=== PATIENT | female | born 1995 | race Caucasian/White ===

== ENCOUNTER → 2019-02-15 | Outpatient (CLI) | payer OTHER ==
[2019-02-15 11:00] LABS: Hematocrit 36.6 % (33.0-51.0); Hemoglobin 11.3 g/dL (11.5-16.0); Mean Corpuscular HGB 23.8 pg (26.0-34.0); Mean Corpuscular HGB Conc 30.9 g/dL (31.5-36.5); Mean Corpuscular Volume 77 fL (80-100); Mean Platelet Volume 10.5 fL (9.1-12.4); Platelet Count 325 K/mm3 (150-400); RDW Coefficient Variation 13.3 % (11.7-14.2); RDW Standard Deviation 37.2 fL (35.1-46.3); Red Blood Cell Count 4.75 M/mm3 (3.80-5.20); White Blood Cell Count 6.43 K/mm3 (4.00-11.30)
[2019-02-15 11:12] LABS: Alanine Aminotransfer (ALT/SGP 20 U/L (12-78); Albumin, Blood 3.6 g/dL (3.4-5.0); Albumin/Globulin Ratio 0.9 (0.8-1.8); Alk Phos 71 U/L (50-136); Amylase, Blood 86 U/L (25-115); Anion Gap 6 mmol/L (6-16); Aspartate Aminotrans (AST/SGOT 13 U/L (12-37); Bilirubin, Total 0.3 mg/dL (0.1-1.0); Blood Urea Nitrogen 8 mg/dL (8-24); Bun/Creatinine Ratio 9.9 (12.0-20.0); CO2, Blood 28 mmol/L (21-32); Calcium, Blood 8.9 mg/dL (8.5-10.1); Chloride, Blood 106 mmol/L (98-108); Creatinine, Blood 0.81 mg/dL (0.40-1.00); Globulin, Blood 4.1 g/dL (2.2-4.0); Glomerular Filtration Rate >60 (60-); Glucose, Blood 84 mg/dL (70-99); Potassium, Blood 4.1 mmol/L (3.5-5.5); Sodium, Blood 140 mmol/L (136-145); Total Protein, Blood 7.7 g/dL (6.4-8.2)
== END ==
LOC: LAB 10:50 → LAB SHORT 10:50
PROVIDERS: Nurse Practitioner Psychiatric/Mental Health
DX: K59.00 Constipation, unspecified (principal); R10.84 Generalized abdominal pain; R11.0 Nausea
CPT/HCPCS: 80053; 82150; 83690; 85027

== ENCOUNTER 2020-08-13 21:41 | Inpatient (IN) | payer OTHER ==
[~2020-08-13] VITALS: Ht 170.2 cm; Wt 79.4 kg
[~2020-08-13 21:41] MED LIST: ALBU90OI INH; FLUT1DIS2 INH; LO LOESTRIN FE1 EACH PO
[2020-08-13 22:44] LABS: BASOPHILS ABSOLUTE AUTO 0.06 K/mm3 (0.00-0.23); BASOPHILS PERCENT AUTO 0 % (0-2); EOSINOPHILS ABSOLUTE AUTO 0.04 K/mm3 (0.00-0.68); EOSINOPHILS PERCENT AUTO 0 % (0-6); Hematocrit 38.2 % (33.0-51.0); Hemoglobin 13.1 g/dL (11.5-16.0); IMMATURE GRAN ABSOLUTE AUTO 0.06 K/mm3 (0.00-0.10); IMMATURE GRAN PERCENT AUTO 0 % (0-1); LYMPHOCYTES ABSOLUTE AUTO 1.35 K/mm3 (0.84-5.20); LYMPHOCYTES PERCENT AUTO 10 % (21-46); MONOCYTES PERCENT AUTO 7 % (4-13); Mean Corpuscular HGB 29.3 pg (26.0-34.0); Mean Corpuscular HGB Conc 34.3 g/dL (31.5-36.5); Mean Corpuscular Volume 86 fL (80-100); Mean Platelet Volume 9.6 fL (9.1-12.4); NEUTROPHILS ABSOLUTE AUTO 11.05 K/mm3 (1.96-9.15); NEUTROPHILS PERCENT AUTO 82 % (41-73); Platelet Count 342 K/mm3 (150-400); RDW Coefficient Variation 11.6 % (11.7-14.2); RDW Standard Deviation 36.4 fL (35.1-46.3); Red Blood Cell Count 4.47 M/mm3 (3.80-5.20); White Blood Cell Count 13.56 K/mm3 (4.00-11.30)
[2020-08-13 23:13] LABS: Alanine Aminotransfer (ALT/SGP 13 U/L (12-78); Albumin, Blood 3.2 g/dL (3.4-5.0); Albumin/Globulin Ratio 0.7 (0.8-1.8); Alk Phos 72 U/L (50-136); Anion Gap 6 mmol/L (6-16); Aspartate Aminotrans (AST/SGOT 10 U/L (12-37); Bilirubin, Total 0.3 mg/dL (0.1-1.0); Blood Urea Nitrogen 12 mg/dL (8-24); Bun/Creatinine Ratio 14.4 (12.0-20.0); CO2, Blood 25 mmol/L (21-32); Calcium, Blood 8.5 mg/dL (8.5-10.1); Chloride, Blood 100 mmol/L (98-108); Creatinine, Blood 0.83 mg/dL (0.40-1.00); Globulin, Blood 4.9 g/dL (2.2-4.0); Glomerular Filtration Rate >60 (60-); Glucose, Blood 105 mg/dL (70-99); Potassium, Blood 3.7 mmol/L (3.5-5.5); Sodium, Blood 131 mmol/L (136-145); Total Protein, Blood 8.1 g/dL (6.4-8.2)
[2020-08-13 23:59] LABS: Source, Urine Clean Catch
[2020-08-14 00:01] LABS: Appearance, Urine Clear (Clear); Bilirubin, Urine Neg (Neg); Blood, Urine 3+ (Neg); Color, Urine Yellow (P-Yellow); Glucose Qualitative, Urine Neg (Neg); Ketones, Urine Neg (Neg); Leukocyte Esterase, Urine 1+ (Neg); Nitrite, Urine Neg (Neg); Protein, Urine Neg (Neg); Specific Gravity, Urine 1.005 (1.003-1.022); Urobilinogen, Urine NORM (Normal); pH, Urine 6.5 (5.0-8.0)
[2020-08-14 00:18] LABS: Bacteria Few /hpf; Red Blood Cells, Urine 0-2 /hpf (0-2); Squamous Epithelial Cells Mod /hpf (Few)
--- NOTE | 2020-08-14 10:43 | NUR ---
PT TO OR VIA CLAUS
[2020-08-14 10:45] LABS: SARS-Cov-2 (COVID-19) PCR, MMC NEGATIVE (NEGATIVE)
--- NOTE | 2020-08-14 11:05 | NUR ---
History, Chart, Medications and Allergies reviewed before start of procedure. Lungs clear T/O to Auscultation. Patient confirms NPO status and agrees with scheduled surgery. Pre-Op teaching done. Pt verbalizes understanding.
--- NOTE | 2020-08-14 11:50 | NUR ---
ASSUMED CARE FROM GIOVANI, PT RESTING SPO2 @ 94%.
--- NOTE | 2020-08-14 12:06 | NUR ---
PT CONT TO REST. SPO2 95% ON RA.
--- NOTE | 2020-08-14 12:30 | NUR ---
PT CONT TO REST. CARE BACK TO GRETCHEN ALLAN.
--- NOTE | 2020-08-14 15:01 | NUR ---
RETURN FROM OR PT RETURNED FROM OR FROM I&D OF PERIRECTAL ABCESS. PT IS PAINFUL ON PERIRECTUM AREA, MILD NAUSEA. MEDICATED IN PACU, WILL CONTINUE TO MEDICATE PER EMAR. PINROSE DRAIN, GUAZE, & ABD PAD IN PLACE, C/D/I AT THIS TIME.
--- NOTE | 2020-08-14 18:17 | NUR ---
SHIFT SELVIN S/P I&D PERIRECTAL ABCESS, POD 0. GUAZE & ABD PAD IN PLACE WITH RADHA WRAP. A & O, VSS, NAUSEA & PAIN TOLERABLE SINCE RETURN FROM OR, MEDICATED X1 PER EMAR. TOLERATING REGULAR DIET WELL, VOIDING AND WALKING WITHIN ROOM. CALL LIGHT WITHIN REACH, WILL CONTINNUE TO MONITOR.
--- NOTE | 2020-08-15 04:15 | NUR ---
SHIFT SUMMARY PT IS A/O X4, IND IN ROOM. S/P I&D OF PERIRECTAL ABCESS. ABD PAD IN PLACE, CHANGING PRN. PAIN MANAGED WITH PERCOCET 7.5MG PRN. PT IS TOLERATING PO INTAKE AND VOIDING. NO ACUTE CHANGES. RESTING IN BED AT THIS TIME.
[2020-08-15] MEDS ORDERED: OXYC10TA19 PO (10:22)
[2020-08-15] MEDS ORDERED: CIPR250 PO (10:23)
--- NOTE | 2020-08-15 11:13 | NUR ---
DISCHARGE ABUNDANCE OF ABD PADS GIVEN. SMALL SEROSANG DRAINAGE FROM BUTTOCKS ONTO PAD. PT UNDERSTANDS IMPORTANCE OF TAKING ALL OF ANTIBTIOICS & F/U W/ DR CEVALLOS. SHE ALSO PLANS TO CALL ROBERT DAVIS TO UPDATE HIM. ESCORTED OUT VIA W/C.
== END 2020-08-15 11:01 | disposition home or self-care (01) | DRG 348 ==
LOC: ER 21:41 → SURS 08-14 01:50 → ER 08-14 06:34 → SURS 08-14 06:34
PROVIDERS: Physician Assistant; Surgery; ADMIT Surgery
PROC: 0D9Q0ZZ Drainage of Anus, Open Approach (ICD-10-PCS; principal; 2020-08-14 11:15)
DX: K61.0 Anal abscess (principal); K50.90 Crohn's disease, unspecified, without complications; J45.909 Unspecified asthma, uncomplicated; Z20.822 Contact with and (suspected) exposure to COVID-19; Z79.899 Other long term (current) drug therapy
CPT/HCPCS: 36415; 36600; 70450; 71045; 71046; 74177; 80053; 81001; 81025; 82140; 83605; 83690; 84703; 85025; 87040; 87086; 93005; 93010; 96374; 96375; 99284-25; 99285-25; A9270; G0480; J1100; J1170; J1885; J2250; J2405; J2543; J2704; J3010; J7030; J7120; Q9967; U0004

== ENCOUNTER → 2023-12-07 | Outpatient (CLI) | payer OTHER ==
[~2023-12-07] MED LIST changes: +CIPR250 PO; +DOXYLAMINE-PYR1 EAC1 PO; +FISH OIL 1,2001 EAC4 PO; +HUMIRA40 MG/0.2 SQ; +NITRO-BID; +ONDA4ODT MM; +OXYC10TA19 PO; +REGLAN1013 PO; +STELARA90 MG/1 ML SQ
== END | disposition home or self-care (01) ==
LOC: LAB SHORT 17:23 → LAB 17:23
DX: O99.612 Diseases of the digestive system complicating pregnancy, second trimester (principal); O09.612 Supervision of young primigravida, second trimester
CPT/HCPCS: 87081; 87150

== ENCOUNTER 2024-01-15 07:06 | Inpatient (IN) | payer OTHER ==
[2024-01-15] VITALS (16 sets, daily range): BP systolic 104–132; BP diastolic 62–88
[~2024-01-15] VITALS: Ht 170.2 cm; Wt 103.8 kg
[2024-01-15] MEDS ORDERED: ePHEDrine Sulfate 50 MG/ML 1ML Injection XX PRN (07:40)
[2024-01-15] MEDS ORDERED: Misoprostol 25 MCG Tab VAG PRN (07:40)
[2024-01-15] MEDS ORDERED: Lactated Ringer's 1,000 ML IV SCH ×3 (07:40)
[2024-01-15] MEDS ORDERED: FentaNYL 2mcg/ml-Bup 0.1% Epd 250 ML EPI PRN (07:40)
[2024-01-15] MEDS ORDERED: OXYTOCIN/RINGER'S LACTATE 500 ML IV SCH (07:40)
[2024-01-15] MEDS ORDERED: FentaNYL Citrate 50 MCG/ML 2 ML Injection IV PRN ×4 (07:50→17:05)
[2024-01-15] MEDS ORDERED: Ondansetron HCl 2 MG / ML 2ML Vial IV PRN (07:50)
[2024-01-15 07:52] LABS: BASOPHILS ABSOLUTE AUTO 0.04 K/mm3 (0.00-0.23); BASOPHILS PERCENT AUTO 1 % (0-2); EOSINOPHILS ABSOLUTE AUTO 0.03 K/mm3 (0.00-0.68); EOSINOPHILS PERCENT AUTO 0 % (0-6); Hematocrit 32.8 % (33.0-51.0); Hemoglobin 10.9 g/dL (11.5-16.0); IMMATURE GRAN ABSOLUTE AUTO 0.06 K/mm3 (0.00-0.10); IMMATURE GRAN PERCENT AUTO 1 % (0-1); LYMPHOCYTES ABSOLUTE AUTO 1.07 K/mm3 (0.84-5.20); LYMPHOCYTES PERCENT AUTO 13 % (21-46); MONOCYTES ABSOLUTE AUTO 0.55 K/mm3 (0.16-1.47); MONOCYTES PERCENT AUTO 7 % (4-13); Mean Corpuscular HGB 26.4 pg (26.0-34.0); Mean Corpuscular HGB Conc 33.2 g/dL (31.5-36.5); Mean Corpuscular Volume 79 fL (80-100); Mean Platelet Volume 10.9 fL (9.1-12.4); NEUTROPHILS ABSOLUTE AUTO 6.54 K/mm3 (1.96-9.15); NEUTROPHILS PERCENT AUTO 79 % (41-73); Platelet Count 197 K/mm3 (150-400); RDW Coefficient Variation 14.1 % (11.7-14.2); RDW Standard Deviation 40.9 fL (35.1-46.3); Red Blood Cell Count 4.13 M/mm3 (3.80-5.20); White Blood Cell Count 8.29 K/mm3 (4.00-11.30)
[2024-01-15] MEDS ORDERED: OXYTOCIN/RINGER'S LACTATE 500 ML IV ONE (07:58)
[2024-01-15] MEDS ORDERED: Calcium Carbonate 500 MG Tab Chew PO SCH (09:00)
[2024-01-15] MEDS ORDERED: Calcium Carbonate 500 MG Tab Chew PO PRN (10:39)
[2024-01-15] MEDS ORDERED: Lactated Ringer's 1,000 ML IV PRN (19:30)
[2024-01-15] MEDS ORDERED: Zolpidem Tartrate 5 MG Tab PO PRN (23:35)
[2024-01-16] VITALS (32 sets, daily range): BP systolic 101–141; BP diastolic 55–87
[2024-01-16] MEDS ORDERED: FentaNYL Citrate 50 MCG/ML 2 ML Injection ONE (08:01)
[2024-01-16] MEDS ORDERED: Acetaminophen 500 MG Tab ONE (16:37)
[2024-01-16] MEDS ORDERED: NS 1,000 ML IV ONE (17:02)
[2024-01-16] MEDS ORDERED: Acetaminophen 500 MG Tab PO PRN (17:25)
--- NOTE | 2024-01-16 19:03 | NUR ---
REPORT GIVEN TO DINO FLORES TO ASSUME CARE OF PT.
[2024-01-16] MEDS ORDERED: NS 1,000 ML IV SCH (19:10)
[2024-01-16] MEDS ORDERED: Ibuprofen 400 MG Tab PO PRN (20:05)
[2024-01-16] MEDS ORDERED: Lanolin Cream TOP PRN (20:05)
[2024-01-16] MEDS ORDERED: Ketorolac Tromethamine 30mg Vial IV PRN (20:05)
[2024-01-16] MEDS ORDERED: Lactated Ringer's 1,000 ML IV SCH (20:05)
[2024-01-16] MEDS ORDERED: Polyethylene Glycol 3350 17 gm PO PRN (20:10)
[2024-01-16] MEDS ORDERED: FLU VACC TS2024-25(6MOS UP)/PF 45 MCG/0.5 ML SYRINGE IM ONE (20:10)
[2024-01-16] MEDS ORDERED: Benzocaine Topical Anesthetic Spray 60GM TOP PRN (20:10)
[2024-01-16] MEDS ORDERED: Rho(D) Immune Globulin 300 MCG / SYR IM ONE (20:10)
[2024-01-16] MEDS ORDERED: Acetaminophen 325 MG TABLET PO PRN (20:10)
[2024-01-16] MEDS ORDERED: Witch Hazel/Glycerin PADS TOP PRN (20:10)
[2024-01-16] MEDS ORDERED: Zolpidem Tartrate 5 MG Tab PO SCH (21:00)
[2024-01-17 03:59] VITALS: BP 115/57
[2024-01-17 07:11] VITALS: BP 110/57
[2024-01-17] MEDS ORDERED: IBUP800 PO (07:28)
[2024-01-17] MEDS ORDERED: PRENATAL TABLE1 EAC2 PO (07:28)
[2024-01-17] MEDS ORDERED: ACET500 PO (07:28)
[2024-01-17 07:35] LABS: BASOPHILS ABSOLUTE AUTO 0.04 K/mm3 (0.00-0.23); BASOPHILS PERCENT AUTO 0 % (0-2); EOSINOPHILS ABSOLUTE AUTO 0.02 K/mm3 (0.00-0.68); EOSINOPHILS PERCENT AUTO 0 % (0-6); Hemoglobin 8.3 g/dL (11.5-16.0); IMMATURE GRAN ABSOLUTE AUTO 0.13 K/mm3 (0.00-0.10); IMMATURE GRAN PERCENT AUTO 1 % (0-1); LYMPHOCYTES ABSOLUTE AUTO 1.15 K/mm3 (0.84-5.20); LYMPHOCYTES PERCENT AUTO 6 % (21-46); MONOCYTES ABSOLUTE AUTO 1.52 K/mm3 (0.16-1.47); MONOCYTES PERCENT AUTO 8 % (4-13); Mean Corpuscular HGB 26.5 pg (26.0-34.0); Mean Corpuscular HGB Conc 33.2 g/dL (31.5-36.5); Mean Corpuscular Volume 80 fL (80-100); Mean Platelet Volume 11.2 fL (9.1-12.4); NEUTROPHILS ABSOLUTE AUTO 15.45 K/mm3 (1.96-9.15); NEUTROPHILS PERCENT AUTO 84 % (41-73); Platelet Count 187 K/mm3 (150-400); RDW Coefficient Variation 14.3 % (11.7-14.2); RDW Standard Deviation 41.3 fL (35.1-46.3); Red Blood Cell Count 3.13 M/mm3 (3.80-5.20); White Blood Cell Count 18.31 K/mm3 (4.00-11.30)
[2024-01-17] MEDS ORDERED: Prenatal Vit/FE Fumarate/FA 1 Tab PO SCH (09:00)
[2024-01-17] MEDS ORDERED: Rho(D) Immune Globulin 300 MCG / SYR IV ONE (09:10)
[2024-01-17 13:04] VITALS: BP 105/58
[2024-01-17] MEDS ORDERED: Sod Ferric Gluc Complx/Sucrose 125 MG in NS 100 ML IV SCH (13:16)
--- NOTE | 2024-01-17 15:32 | NUR ---
ASSUMED CARE OF PATIENT AT APPROX 1130 TODAY.
[2024-01-17 16:07] VITALS: BP 145/63
[2024-01-17 21:20] VITALS: BP 117/64
[2024-01-18 00:52] VITALS: BP 117/56
[2024-01-18 04:33] VITALS: BP 118/63
[2024-01-18 07:58] VITALS: BP 109/61
[2024-01-18] MEDS ORDERED: Ferrous Sulfate 325 MG Tab PO SCH (09:00)
--- NOTE | 2024-01-18 11:01 | NUR ---
DC INSTRUCTIONS GONE OVER WITH PT, DENIES ANY QUESTIONS, ENCOURAGED TO CALL IF HAS ANY. AWARE THAT [employer] SENDS MEDS ELECTRONICALLY, AWARE TO TAKE HER IRON PILL EVERY OTHER DAY PER DR MYERS AND TO TAKE MOTRIN DIRECTED ON THE BOTTLE NEEDED FOR PAIN. [facility] 2 AND 6 WEEKS APPOINTMENTS MADE WITH [employer] BY [employer]. PT IS GETTING HERSELF AND BABY DRESSED THEN WILL CALL [facility] ADN TO LEAVE
--- NOTE | 2024-01-18 11:44 | NUR ---
REFUSES VS BEFORE GOING HOME,. GETTING READY TO WALK OUT TO CAR VERY VERY SOON.
== END 2024-01-18 12:05 | disposition home or self-care (01) | DRG 806 ==
LOC: BC 07:06 → OBS 07:06 → BC 07:24
PROVIDERS: Family Medicine; ADMIT Obstetrics & Gynecology
PROC: 10E0XZZ Delivery of Products of Conception, External Approach (ICD-10-PCS; principal; 2024-01-16)
PROC: 0KQM0ZZ Repair Perineum Muscle, Open Approach (ICD-10-PCS; 2024-01-16)
PROC: 10907ZC Drainage of Amniotic Fluid, Therapeutic from Products of Conception, Via Natural or Artificial Opening (ICD-10-PCS; 2024-01-16)
PROC: 3E0DXGC Introduction of Other Therapeutic Substance into Mouth and Pharynx, External Approach (ICD-10-PCS; 2024-01-16)
PROC: 0U7C7ZZ Dilation of Cervix, Via Natural or Artificial Opening (ICD-10-PCS; 2024-01-16)
PROC: 10H07YZ Insertion of Other Device into Products of Conception, Via Natural or Artificial Opening (ICD-10-PCS; 2024-01-16)
PROC: 3E0R3BZ Introduction of Anesthetic Agent into Spinal Canal, Percutaneous Approach (ICD-10-PCS; 2024-01-16)
PROC: 00HU33Z Insertion of Infusion Device into Spinal Canal, Percutaneous Approach (ICD-10-PCS; 2024-01-16)
DX: O48.0 Post-term pregnancy (principal); K50.90 Crohn's disease, unspecified, without complications; Z37.0 Single live birth; Z3A.41 41 weeks gestation of pregnancy; O99.52 Diseases of the respiratory system complicating childbirth; O99.62 Diseases of the digestive system complicating childbirth; O90.81 Anemia of the puerperium; D64.89 Other specified anemias; J45.20 Mild intermittent asthma, uncomplicated; Z79.899 Other long term (current) drug therapy; O70.1 Second degree perineal laceration during delivery
CPT/HCPCS: 36415; 36416; 51702; 59070; 59200; 85025; 85460; 86850; 86900; 86901; A9270; J1885; J2405; J2590; J2791; J2916; J7030; J7120; T2101

== ENCOUNTER 2025-02-16 12:53 | Day surgery (SDC) | payer OTHER ==
[~2025-02-16 12:53] MED LIST changes: +ACET500 PO; +IBUP800 PO; +PRENATAL TABLE1 EAC2 PO
== END 2025-02-16 14:00 | disposition home or self-care (01) ==
LOC: ORSCSDS 12:53
DX: K50.90 Crohn's disease, unspecified, without complications (principal); Z53.9 Procedure and treatment not carried out, unspecified reason
CPT/HCPCS: J2704; J7120